=== PATIENT | male | born 1940 | race Caucasian/White ===

== ENCOUNTER 2023-04-11 15:18 | Emergency (ER) | payer MEDICARE ==
[~2023-04-11] VITALS: Ht 172.7 cm; Wt 65.9 kg
[2023-04-11 16:13] LABS: BASOPHILS % (AUTO) 0.6 % (0-1); EOSINOPHILS # (AUTO) 0.2 X10'3 (0-0.9); HEMATOCRIT 43.1 % (42.0-52.0); HEMOGLOBIN 14.6 g/dl (14.0-17.9); LYMPHOCYTES # (AUTO) 2.6 X10'3 (1.1-4.8); LYMPHOCYTES % (AUTO) 33.9 % (21-51); MEAN CORPUSCULAR HEMOGLOBIN 32.9 PG (27.0-31.0); MEAN CORPUSCULAR HGB CONC 33.8 g/dL (33.0-36.5); MEAN CORPUSCULAR VOLUME 97.4 FL (78-98); MEAN PLATELET VOLUME 7.6 FL (7.4-10.4); MONOCYTES # (AUTO) 0.9 X10'3 (0-0.9); MONOCYTES % (AUTO) 11.7 % (2-12); NEUTROPHILS # (AUTO) 3.9 X10'3 (1.8-7.7); NEUTROPHILS % (AUTO) 51.8 % (42-75); PLATELET COUNT 154 X10'3 (140-440); RED BLOOD COUNT 4.42 X10'6 (4.70-6.10); RED CELL DISTRIBUTION WIDTH 13.2 % (11.5-14.5); WHITE BLOOD COUNT 7.6 X10'3 (4.5-11.0)
[2023-04-11 16:31] LABS: ALBUMIN 3.7 G/DL (3.4-5.0); ANION GAP 8 (8-16); BLOOD UREA NITROGEN 19 MG/DL (7-18); BUN/CREATININE RATIO 17.8 (10.0-20.0); CALCIUM 8.8 MG/DL (8.5-10.1); CHLORIDE 107 MMOL/L (99-107); CREATININE 1.07 MG/DL (0.60-1.10); ETHANOL < 10 MG/DL (<10); GLUCOSE 91 MG/DL (70-104); SODIUM 141 MMOL/L (135-145); THYROID STIMULATING HORMONE 1.87 ulU/ml (0.34-4.50); eCRCL 48 ML/MIN; eGFR 66 ML/MIN
[2023-04-11 18:54] LABS: BILIRUBIN,URINE NEGATIVE (Neg); CLARITY,URINE CLEAR (Clear); COLOR,URINE YELLOW (Yellow); GLUCOSE, URINE NEGATIVE (Neg); KETONES,URINE 15 mg/dl (Neg); LEUKOCYTE ESTERASE ,URINE NEGATIVE (Neg); NITRITES, URINE NEGATIVE (Neg); OCCULT BLOOD,URINE NEGATIVE (Neg); PH,URINE 5.5 (4.8-8.0); PROTEIN,URINE NEGATIVE (Neg); UROBILINOGEN,URINE 0.2 E.U/dL (0.2-1.0)
[2023-04-11 19:13] LABS: UA COLLECTION TYPE NON-SPECIFIED
[2023-04-11 19:24] LABS: URINE AMPHETAMINE SCREEN NEGATIVE (Neg); URINE BARBITUATE SCREEN NEGATIVE (Neg); URINE BENZODIAZEPINES SCREEN NEGATIVE (Neg); URINE CANNABINOID SCREEN NEGATIVE (Neg); URINE COCAINE SCREEN NEGATIVE (Neg); URINE METHADONE SCREEN NEGATIVE (Neg); URINE OPIATE SCREEN NEGATIVE (Neg); URINE PHENCYCLIDINE SCREEN NEGATIVE (Neg)
[2023-04-11] MEDS ORDERED: DONE10TA19 PO (20:42)
[2023-04-11] MEDS ORDERED: BUPR150T8 PO (20:43)
[2023-04-11] MEDS ORDERED: MEMA5TAB PO (20:43)
[2023-04-11] MEDS ORDERED: AMLO2.5T2 PO ×2 (20:45→20:49)
[2023-04-11] MEDS ORDERED: LOSA-415 PO ×2 (20:49→21:27)
[2023-04-12 05:59] VITALS: BP 136/70; PULSE 60; TEMP 98; O2SAT 94
[2023-04-12] MEDS: buPROPion SR 150mg tablet PO SCH (08:16)
[2023-04-12] MEDS: donepezil 5mg tablet PO SCH (08:16)
[2023-04-12] MEDS: memantine 5mg tablet PO SCH (08:16)
[2023-04-12 08:59] VITALS: RESP 16
[2023-04-12] MEDS ORDERED: amLODIPine 5mg tablet PO SCH (21:00)
[2023-04-12] MEDS ORDERED: losartan 25mg tablet PO SCH (21:00)
== END 2023-04-12 13:00 | disposition home or self-care (01) ==
LOC: ER 15:19
DX: F01.50 Vascular dementia, unspecified severity, without behavioral disturbance, psychotic disturbance, mood disturbance, and anxiety (principal); Z20.822 Contact with and (suspected) exposure to COVID-19; F32.A Depression, unspecified; Z72.89 Other problems related to lifestyle; Z79.899 Other long term (current) drug therapy
CPT/HCPCS: 36415; 80048; 80305; 80320; 81003; 84443; 85025; 87811; 99284